=== PATIENT | male | born 1970 | race African-American/Black ===

== ENCOUNTER 2025-07-18 15:30 | Emergency (ER) | payer MEDICAID ==
[~2025-07-18] VITALS: Ht 177.8 cm; Wt 110.0 kg
[2025-07-18 15:34] VITALS: O2SAT 98
[2025-07-18 16:58] LABS: BASOPHILS % 0.9 % (0.0-2.0); EOSINOPHILS % 0.4 % (0.0-5.0); HEMATOCRIT. 41.3 % (42.0-52.0); HEMOGLOBIN. 13.9 g/dL (14.0-18.0); LYMPHOCYTES % 47.7 % (20.0-50.0); MEAN PLATELET VOLUME 10.3 fl (7.4-10.4); MONOCYTES % 8.3 % (2.0-8.0); NEUTROPHILS % 42.7 % (40.0-76.0); PLATELET 248 x1000/uL (130-400); RED BLOOD CELL COUNT 4.86 mill/uL (4.7-6.1); RED CELL DISTRIBUTION WIDTH 13.7 % (11.6-14.6)
[2025-07-18] MEDS: IBUPROFEN 600MG TABLET PO ONE (17:15)
[2025-07-18 17:17] LABS: CREATININE 1.1 mg/dL (0.6-1.3); TROPONIN I HIGH SENSITIVITY 4 ng/L (3.0-53); UREA NITROGEN BLOOD 8 mg/dL (9-23)
[2025-07-18 20:13] VITALS: BP 149/91; PULSE 64; RESP 18; TEMP 36.7; O2SAT 100
== END 2025-07-18 20:29 | disposition home or self-care (01) ==
LOC: ER 15:30
DX: M79.604 Pain in right leg (principal); R51.9 Headache, unspecified; E11.9 Type 2 diabetes mellitus without complications; E78.00 Pure hypercholesterolemia, unspecified
CPT/HCPCS: 36415; 71045; 80048; 84484; 85025; 93005; 93971; 99285